=== PATIENT | male | born 2000 | race Caucasian/White ===

== ENCOUNTER 2022-01-09 21:49 | Emergency (ER) | payer SELFPAY ==
[2022-01-09 22:09] VITALS: BMI 26.6
[2022-01-09 22:14] VITALS: BP 138/83; PULSE 99; RESP 16; TEMP 36.9; O2SAT 100
--- NOTE | 2022-01-09 22:18 | XRR_ITS ---
PROCEDURE INFORMATION: Exam: XR Chest Exam date and time: 01/09/2022 10:38 PM Age: 21 years old Clinical indication: Shortness of breath; Additional info: SOB TECHNIQUE: Imaging protocol: Radiologic exam of the chest. Views: 1 view. COMPARISON: No relevant prior studies available. FINDINGS: Lungs: No consolidation. Probable tiny calcified granuloma lateral right lung base. Pleural spaces: Unremarkable. No pleural effusion. No pneumothorax. Heart/Mediastinum: No cardiomegaly. Bones/joints: No acute findings. XR/XR chest 1V portable [id number] IMPRESSION: No acute findings.
[2022-01-09 22:33] VITALS: O2SAT 99
--- NOTE | 2022-01-09 22:44 | ED_ITS ---
HPI - General Adult General: Chief complaint: General Medical Stated complaint: pain on left side of body Time Seen by Provider: 01/09/22 21:54 Source: patient Mode of arrival: ambulatory Limitations: no limitations History of Present Illness: 21-year-old male states over the last 2 days he has been having painful inspiration. He states been a sharp pain in his left chest he denies any fever denies any shortness of breath. He states the pain currently is a 0-10 he states it seems to be worse at night and worse pain is a 5 out of 10. Denies any injury denies any recent long trips he has no history of blood clots. Denies any recent surgery. Associated symptoms: Reports chest pain; Deny dyspnea, headache(s), nausea, rash or vomiting Review of Systems Const: Denies: fever(s), chills, body aches or change in appetite Eyes: Denies: blurry vision or eye discomfort ENMT: Denies: throat pain or dental pain Card: Reports: chest pain Resp: Denies: dyspnea GI: Denies: abdominal pain, nausea, vomiting or diarrhea : Denies: dysuria Musc: Denies: neck pain or back pain Skin/Breast: Denies: rash Neuro: Denies: headache(s) Psych: Denies: depression Lewis/Lymph: Denies: easy bruising All/Imm: Denies: urticaria PFSH ED PFSH: Medical History (Updated 01/09/22 @ 22:58 by Liz Chua MD) No pertinent past medical history Social History Smoking and tobacco status: current every day smoker Physical Exam Const: COMMON NORMALS: no acute distress, patient oriented x3 and healthy appearing HENMT: COMMON NORMALS: normocephalic and atraumatic HEAD & SCALP: normocephalic and atraumatic Eye: COMMON NORMALS: Equal, round and reactive pupils present and EOMs intact bilaterally PUPIL: Yes Equal, round and reactive pupils present Neck/C-Spine: COMMON NORMALS: full ROM and supple Chest: COMMONS NORMALS: normal inspection of the chest and normal palpation of entire chest wall Resp: COMMON NORMALS: normal respiratory effort, No retractions, No use of accessory muscles and clear to auscultation bilaterally AUSCULTATION: clear to auscultation bilaterally Cardio: COMMON NORMALS: regular rate, regular rhythm and No murmurs present (Cardio) RATE: regular rate RHYTHM: regular rhythm GI: COMMON NORMALS: Normal to inspection, nondistended, normoactive bowel sounds present, Soft to palpation, non-tender and no masses PALPATION: Yes Soft to palpation Extremity: COMMON NORMALS: normal to inspection and full ROM Neuro: COMMON NORMALS: patient oriented x3, moves all extremities and no focal motor deficits Psych: COMMON NORMALS: mental status grossly normal, Normal thought process present and cooperative THOUGHT PROCESS: Normal thought process present Skin: COMMON NORMALS: no rashes or lesions noted and no wounds GENERAL SKIN EXAM: no rashes or lesions noted Course Vital Signs: Vital signs: Vital Signs Temperature 98.4 F 01/09/22 22:14 Pulse Rate 99 01/09/22 22:14 Respiratory Rate 16 01/09/22 22:14 Blood Pressure 138/83 01/09/22 22:14 Pulse Oximetry 99 01/09/22 22:33 Oxygen Delivery Me thod 01/09/22 22:33 MDM - General Adult Medical Decision Making Patient presents here with chest pain is likely pleuritic in nature he has no risk factors for blood clot EKG and x-ray are normal he is in no distress here he is stable for discharge he is to follow-up his PCP and return if worsening he understands agrees to plan. Discharge Plan Discharge Patient Disposition: Home Clinical Impression: Chest pain Condition: Stable Prescriptions: New Naprosyn 500 mg tablet 500 mg PO BID PRN (Reason: pain) Qty: 20 0RF No Action sulfamethoxazole-trimethoprim [Bactrim DS] 800-160 mg tablet 1 tab PO Q12H 7 Days Qty: 14 0RF Discharge Orders: Discharge ED (Routine); Ordered 01/09/22 Ordered By: Liz Chua Discharge Diet: Advance as tolerated Discharge Activity: Resume usual activity Patient Instructions: Pleurisy (ED) Coding Level of Care Code ED Measurement Superintendent for Chg Fwd Exam Comprehensive
--- NOTE | 2022-01-09 22:54 | ECG_ITS ---
[facility] Test Date: 2022-01-09 Pat Name: Ken Aggarwal Department: Room: Gender: Male Hypo Dipper: : 2000 Requested By: Liz Chua Order Number: [id number] Roxie MD: Vincent Spencer M.D. Measurements Intervals [place] Rate: 90 P: 59 SC: 150 QRS: 95 QRSD: 84 T: 9 QT: 333 QTc: 409 Interpretive Statements SINUS RHYTHM WITH SINUS ARRHYTHMIA BORDERLINE RIGHT AXIS DEVIATION [QRS AXIS > 90] No previous ECG available for comparison Electronically Signed On 01-10-2022 17:51:02 CDT by Vincent Spencer M.D. [id number]
[2022-01-09] MEDS: naproxen 500 mg Tablet PO (23:08)
== END 2022-01-09 23:10 | disposition home or self-care (01) ==
PROVIDERS: Emergency Provider Emergency Medicine
DX: R07.9 Chest pain, unspecified (principal); F17.210 Nicotine dependence, cigarettes, uncomplicated
CPT/HCPCS: 71045; 93005; 99283

== ENCOUNTER 2022-02-10 17:33 | Emergency (ER) | payer SELFPAY ==
[2022-02-10 17:45] VITALS: BP 148/76; PULSE 89; RESP 16; TEMP 36.7; BMI 25.8
--- NOTE | 2022-02-10 18:12 | XRR_ITS ---
PROCEDURE INFORMATION: Exam: XR Left Foot Exam date and time: 02/10/2022 6:26 PM Age: 21 years old Clinical indication: Injury or trauma; Fall; Blunt trauma; Foot; Left; Additional info: Injury 4 days ago TECHNIQUE: Imaging protocol: Radiologic exam of the Left foot. Views: 3 or more views. COMPARISON: No relevant prior studies available. FINDINGS: Bones/joints: Normal. Soft tissues: Normal. XR/XR foot LT min 3V* [id number] IMPRESSION: No acute findings.
--- NOTE | 2022-02-10 18:25 | W.ED.EXTPRO ---
HPI - Extremity Problem General: Chief complaint: Extremity Injury, Lower Stated complaint: Foot feels like it's broken Time Seen by Provider: 02/10/22 17:37 History of Present Illness: 21-year-old male patient comes in today with injury to the left great toe. Patient reports on Sunday he dropped a piece of wood on his toe. Since then he has had increased pain and discomfort with swelling and redness to the toe. Associated symptoms: Deny chest pain or fever(s) Review of Systems Const: Denies: fever(s) Card: Denies: chest pain Resp: Denies: dyspnea Musc: Reports: extremity pain Skin/Breast: Reports: other (Nail injury great toe left foot) [facility] ED PFSH: Medical History (Updated 02/10/22 @ 18:43 by JEFFREY Putnam) No pertinent past medical history Social History Smoking and tobacco status: current every day smoker Physical Exam Const: COMMON NORMALS: alert HENMT: COMMON NORMALS: normocephalic HEAD & SCALP: normocephalic Neck/C-Spine: COMMON NORMALS: full ROM Resp: COMMON NORMALS: normal respiratory effort Cardio: COMMON NORMALS: regular rate RATE: regular rate Extremity: LEFT LOWER EXTREMITY: Yes foot & digits (Partially avulsed great toenail, swelling and redness.) Left foot and digits: Yes inspection, Yes palpation and Yes ROM Neuro: SENSORIUM/ORIENTATION: Yes alert Skin: TRAUMA: other (Loosened left great toenail.) Course Vital Signs: Vital signs: Vital Signs Temperature 98.1 F 02/10/22 17:45 Pulse Rate 89 02/10/22 17:45 Respiratory Rate 16 02/10/22 17:45 Blood Pressure 148/76 02/10/22 17:45 Oxygen Delivery Me thod 02/10/22 17:45 MDM - Extremity (Nontraumatic) Medical Decision Making Patient comes in for injury to the left foot great toe. On exam patient has a loosened toenail to the great toe of the left foot. There is some redness and swelling and some purulent drainage 2. Wound occurred on Sunday of this week. Pulses and sensation are intact. Patient is very guarded with touch. Differential diagnosis includes fracture, avulsion of toenail, subungual hematoma. No obvious subungual hematoma is noted. X-ray noted no fracture. Reviewed exam with patient and family with recommendations for treatment and follow-up. They reported understanding and agreed to plan. Discharge Plan Discharge Patient Disposition: Home Clinical Impression: Crush injury of toe Qualifiers: Encounter type: initial encounter Laterality: right Qualified Code(s): S97.101A - Crushing injury of unspecified right toe(s), initial encounter Condition: Stable Prescriptions: New amoxicillin-pot clavulanate 875-125 mg tablet 1 tab PO BID Qty: 10 0RF hydrocodone-acetaminophen 5-325 mg tablet 1 tab PO Q8H PRN (Reason: pain) Qty: 6 0RF No Action sulfamethoxazole-trimethoprim [Bactrim DS] 800-160 mg tablet 1 tab PO Q12H 7 Days Qty: 14 0RF Naprosyn 500 mg tablet 500 mg PO BID PRN (Reason: pain) Qty: 20 0RF Discharge Orders: Discharge ED (Routine); Ordered 02/10/22 Ordered By: Shaq Duarte Discharge Diet: Usual diet Discharge Activity: Increase activity as tolerated Patient Instructions: Crush Injury (ED) Activity Restrictions/Additional Instructions: Home and rest. Elevate foot. Use acetaminophen and ibuprofen to control pain. Use hydrocodone for severe pain. Do not use hydrocodone while operating equipment or driving. Not use hydrocodone while you should be alert and monitoring your situation around you. Drink plenty of water with medication. Take antibiotic for the next 5 days. Follow-up with primary care in 1 week for recheck. Return to ER for new concerns. Coding Level of Care Code ED Biological Technical Officer for Sriram Nguyen
[2022-02-10] MEDS: amoxicillin-clav 875-125 mg Tablet 1 TAB PO (18:53)
[2022-02-10] MEDS: HYDROcodone-acetaminophen 5-325 mg Tablet 1 TAB PO (18:53)
== END 2022-02-10 18:57 | disposition home or self-care (01) ==
PROVIDERS: Emergency Provider Nurse Practitioner Family
DX: S97.101A Crushing injury of unspecified right toe(s), initial encounter (principal); F17.200 Nicotine dependence, unspecified, uncomplicated; W22.8XXA Striking against or struck by other objects, initial encounter
CPT/HCPCS: 73630; 99283

== ENCOUNTER 2022-06-04 22:53 | Emergency (ER) | payer SELFPAY ==
[2022-06-04 23:00] VITALS: BP 145/74; PULSE 104; RESP 18; TEMP 36.8; O2SAT 100; BMI 25.8
--- NOTE | 2022-06-04 23:01 | W.ED.ABDPA2 ---
HPI - Abdominal Pain General: Chief Complaint: Skin/Abscess/Foreign Body Stated Complaint: groin pain Time Seen by Provider: 06/04/22 22:56 History of Present Illness: Patient comes in today with a nodule to the right inguinal area. Patient noticed that nodule about 2 to 3 days ago. Patient denies any nausea vomiting or fever. Patient reports no urinary difficulty. Patient denies any other complaints. Further questioning patient does report ingrown toenail in the left foot. Review of Systems Skin/Breast: Reports: other (Ingrown toenail, lump in the right inguinal area) [facility] ED PFS: Medical History (Updated 06/04/22 @ 23:10 by JEFFREY Putnam) No pertinent past medical history Social History Smoking and tobacco status: current every day smoker Physical Exam Const: COMMON NORMALS: alert HENMT: COMMON NORMALS: normocephalic HEAD & SCALP: normocephalic Neck/C-Spine: COMMON NORMALS: full ROM Resp: COMMON NORMALS: normal respiratory effort and clear to auscultation bilaterally AUSCULTATION: clear to auscultation bilaterally Cardio: COMMON NORMALS: regular rate and regular rhythm RATE: regular rate RHYTHM: regular rhythm : OTHER: Right inguinal area there is a 1 cm nodule palpable with free movement Extremity: LEFT LOWER EXTREMITY: Yes foot & digits (Erythematous draining great toe left foot) Neuro: SENSORIUM/ORIENTATION: Yes alert Course Vital Signs: Vital signs: Vital Signs Temperature 98.3 F 06/04/22 23:00 Pulse Rate 104 H 06/04/22 23:00 Respiratory Rate 18 06/04/22 23:00 Blood Pressure 145/74 06/04/22 23:00 Pulse Oximetry 100 06/04/22 23:00 Oxygen Delivery Me thod 06/04/22 23:00 MDM - Abdominal Pain Medical Decision Making Patient comes in with palpable nodule to the right inguinal area. Nodule is freely movable and only tender to palpation. Patient also has some erythema and drainage to the great toe on the left foot. Differential diagnosis includes but not limited to lymphadenitis, lipoma, cat scratch fever, reactive lymphadenopathy to the ingrown toenail. Recommended treating for infection with Bactrim 1 tablet twice a day for the next 10 days. Recommend recheck of nodule in 2 weeks. Reported to patient I may need to have further evaluation with either biopsy or lab testing which he can talk with primary care regarding that. Case management was requested to assist with follow-up with primary care. Discharge Plan Discharge Patient Disposition: Home Clinical Impression: Lymphadenitis, Ingrowing toenail Condition: Stable Prescriptions: New Bactrim DS 800-160 mg tablet 1 tab PO BID 10 Days Qty: 20 0RF Continued Naprosyn 500 mg tablet 500 mg PO BID PRN (Reason: pain) Qty: 20 0RF Discontinued sulfamethoxazole-trimethoprim [Bactrim DS] 800-160 mg tablet 1 tab PO Q12H 7 Days Qty: 14 0RF amoxicillin-pot clavulanate 875-125 mg tablet 1 tab PO BID Qty: 10 0RF hydrocodone-acetaminophen 5-325 mg tablet 1 tab PO Q8H PRN (Reason: pain) Qty: 6 0RF Discharge Orders: Discharge ED (Routine); Ordered 06/04/22 Ordered By: Shaq Duarte Discharge Diet: Usual diet Discharge Activity: Increase activity as tolerated Patient Instructions: Lymphadenopathy (ED) Activity Restrictions/Additional Instructions: Drink plenty of water with medications. Follow-up with primary care in 2 weeks for recheck. You may need to have further evaluation of the nodule with referral to surgeon for biopsy. Case management will contact you if assistance for follow-up with primary care. Return to ED for new concerns. Coding Level of Care Code ED Palliative Nurse for Sriram Nguyen
[2022-06-04] MEDS: sulfamethoxazole-trimeth DS 160-800 mg Tablet 1 TAB PO (23:14)
--- NOTE | 2022-06-05 14:05 | DCPLANNER ---
Addendum entered by Cynthia Godfrey 07/14/22 07:35: Patient had an appointment scheduled at [facility] - appointment was cancelled Addendum entered by Cynthia Godfrey 06/05/22 14:33: Patient called human services case manager back stating that he would like to have help in getting established with a primary care physician. property manager called [facility], spoke with Stephanie, gave clinic patients information. A follow up appointment was scheduled for Sunday, June 12, 2022 at 2:[address] Otoole. property manager gave patient appointment information. Original Note: property manager had message to speak with patient about getting established with a primary care physician. property manager called phone number [phone] - unable to speak with patient at this time, and unable to leave a voicemail for patient due to no voicemail box set up.
== END 2022-06-04 23:23 | disposition home or self-care (01) ==
PROVIDERS: Emergency Provider Nurse Practitioner Family
DX: I88.9 Nonspecific lymphadenitis, unspecified (principal); L60.0 Ingrowing nail; F17.210 Nicotine dependence, cigarettes, uncomplicated
CPT/HCPCS: 99283

== ENCOUNTER 2022-06-28 23:19 | Emergency (ER) | payer SELFPAY ==
[2022-06-28 23:23] VITALS: BP 164/87; PULSE 91; RESP 15; TEMP 37.1; O2SAT 98; BMI 25.5
--- NOTE | 2022-06-28 23:32 | ED_ITS ---
HPI - URI/Sore Throat General: Chief Complaint: Upper Respiratory Infection Stated Complaint: Congestion, sore throat, fever Time Seen by Provider: 06/28/22 23:32 History of Present Illness: 22-year-old male patient comes in today for complaints of cough and congestion for the last 2 days. Patient reports no severe headache or shortness of breath. Patient appears mildly unwell but nontoxic. Patient appears in no severe pain. Review of Systems ENMT: Reports: throat pain Resp: Reports: non-productive cough PFSH ED PFSH: Medical History (Updated 06/29/22 @ 00:19 by JEFFREY Putnam) No pertinent past medical history Social History Smoking and tobacco status: current every day smoker Physical Exam Const: COMMON NORMALS: alert HENMT: COMMON NORMALS: normocephalic HEAD & SCALP: normocephalic Neck/C-Spine: COMMON NORMALS: full ROM Resp: COMMON NORMALS: normal respiratory effort and clear to auscultation bilaterally AUSCULTATION: clear to auscultation bilaterally Cardio: COMMON NORMALS: regular rate and regular rhythm RATE: regular rate RHYTHM: regular rhythm Extremity: COMMON NORMALS: normal to inspection Neuro: SENSORIUM/ORIENTATION: Yes alert Skin: COMMON NORMALS: turgor normal GENERAL SKIN EXAM: turgor normal Course Vital Signs: Vital signs: Vital Signs Temperature 98.8 F 06/28/22 23:23 Pulse Rate 91 06/28/22 23:23 Respiratory Rate 15 06/28/22 23:23 Blood Pressure 164/87 06/28/22 23:23 Pulse Oximetry 98 06/28/22 23:23 Oxygen Delivery Me thod 06/28/22 23:23 MDM - URI/Sore Throat Medical Decision Making Patient comes in today for complaints of sore throat and cough and congestion for 2 days. On exam patient appears nontoxic. Lungs are clear to auscultation. Patient has some drainage in the nose. Bilateral TMs are clear. Differential diagnosis includes not limited to strep pharyngitis, viral syndrome, upper respiratory infection. Strep test, COVID-19 test, and influenza test were all negative. Reviewed exam with patient with recommendations for treatment and follow-up. Patient reported understanding. Lab Data Laboratory Results Influenza Type A Ag Negative (Negative) 06/28/22 23:30 Influenza Type B Ag Negative (Negative) 06/28/22 23:30 SARS-CoV-2 Ag (Rapid) Negative (Negative) 06/28/22 23:30 Group A Strep Rapid Negative (Negative) 06/28/22 23:30 Discharge Plan Discharge Patient Disposition: Home Clinical Impression: Upper respiratory infection Qualifiers: URI type: unspecified viral URI Qualified Code(s): J06.9 - Acute upper respiratory infection, unspecified Condition: Stable Prescriptions: No Action Naprosyn 500 mg tablet 500 mg PO BID PRN (Reason: pain) Qty: 20 0RF Discharge Orders: Discharge ED (Routine); Ordered 06/29/22 Ordered By: Shaq Duarte Discharge Diet: Usual diet Discharge Activity: Increase activity as tolerated Patient Instructions: Upper Respiratory Infection (ED) Activity Restrictions/Additional Instructions: Home and rest. Drink plenty of water and fluids. Use acetaminophen and ibuprofen for pain and discomfort. Most upper respiratory infections will run 5 to 7 days. Some people do develop bronchitis after upper respiratory infection but that usually will clear within 2 to 3 weeks. Follow-up with primary care as needed. Return to emergency department for worsening symptoms such as persistent vomiting, severe chest pain, or increasing shortness of breath. Stand Alone Forms: Work/School Release Coding Level of Care Code ED Supervisor Plastic Sheets for Sriram Nguyen
[2022-06-29 00:05] LABS: Rapid Strep A Test Negative (Negative)
[2022-06-29 00:15] LABS: SARS Covid-2 Antigen Negative (Negative)
[2022-06-29 00:16] LABS: Influenza A by IFA Negative (Negative); Influenza B by IFA Negative (Negative)
[2022-06-29 00:23] VITALS: PULSE 83; RESP 18; O2SAT 99
== END 2022-06-29 00:24 | disposition home or self-care (01) ==
PROVIDERS: Emergency Provider Nurse Practitioner Family
DX: J06.9 Acute upper respiratory infection, unspecified (principal); Z20.822 Contact with and (suspected) exposure to COVID-19; F17.210 Nicotine dependence, cigarettes, uncomplicated
CPT/HCPCS: 87081; 87426; 87804; 87880; 99283

== ENCOUNTER 2022-09-20 17:08 | Emergency (ER) | payer SELFPAY ==
[2022-09-20 17:20] VITALS: BP 157/98; PULSE 98; RESP 19; TEMP 36.8; O2SAT 98; BMI 25.8
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
[2022-09-20] MEDS: HYDROcodone-acetaminophen 10-325 mg Tablet 1 TAB PO (18:51)
[2022-09-20] MEDS: tetracaine 0.5% Op Soln 4 mL Btl 1 DROP EYE-LEFT (19:08)
[2022-09-20] MEDS: fluorescein 1 mg Strip EYE-LEFT (19:08)
[2022-09-20] MEDS: neomycin-poly-dex Op 5 mL Btl 2 DROP EYE-LEFT (19:46)
--- NOTE | 2022-09-22 15:17 | DCPLANNER ---
system administration manager called patient due to no primary care physician - no answer at this time.
== END 2022-09-20 19:50 | disposition home or self-care (01) ==
PROVIDERS: Emergency Provider Nurse Practitioner Family
DX: S05.02XA Injury of conjunctiva and corneal abrasion without foreign body, left eye, initial encounter (principal); H11.32 Conjunctival hemorrhage, left eye; F17.210 Nicotine dependence, cigarettes, uncomplicated; W34.09XA Accidental discharge from other specified firearms, initial encounter
CPT/HCPCS: 99283

== ENCOUNTER 2024-05-21 21:53 | Emergency (ER) | payer SELFPAY ==
[2024-05-21 22:06] VITALS: BP 154/94; PULSE 103; RESP 16; TEMP 36.9; O2SAT 98; BMI 27.4
--- NOTE | 2024-05-21 22:17 | W.ED.DENTAL ---
HPI - Dental/Oral General: Chief complaint: Dental/Oral Stated complaint: dental pain mouth swollen Time Seen by Provider: 05/21/24 22:12 History of Present Illness: Patient presents to the ER with multiple dental caries and pain. There is 1 on each side on the bottom and 1 on the upper left top. This been going on for the last couple days it has been giving him problems. He has not been able to get into the dentist due to the holidays. Related Data Previous Rx's Medication Instructions Recorded clindamycin HCl 150 mg capsule 450 mg (3 x 150 mg) PO Q8H 7 days 11/27/23 #63 caps hydrocodone 7.5 mg-acetaminophen 1 tab PO Q6H PRN pain 3 days #10 11/27/23 325 mg tablet tabs clindamycin HCl 300 mg capsule 300 mg PO Q6H 7 days #28 caps 05/21/24 Allergies Allergy/AdvReac Type Severity Reaction Status Date / Time No Known Allergies Allergy Verified 11/27/23 15:54 Review of Systems General: Reports: 10 or more systems reviewed and unremarkable except in HPI and below PFSH ED PFSH: Medical History No pertinent past medical history Social History Smoking and tobacco/nicotine status: current every day tobacco/nicotine user Physical Exam Const: COMMON NORMALS: no acute distress, average body habitus, patient oriented x3, no limitations, healthy appearing, alert and well nourished HENMT: COMMON NORMALS: normocephalic, atraumatic, hearing grossly normal bilaterally, external ears normal, Normal external nose present and moist oral mucous membranes; dentition not normal (Very poor dentition with multiple necrotic teeth) HEAD & SCALP: normocephalic and atraumatic NOSE: Normal external nose present EXTERNAL EAR: Yes external ears normal Neck/C-Spine: COMMON NORMALS: full ROM, no lymphadenopathy, supple, no meningeal signs and no JVD Chest: COMMONS NORMALS: normal inspection of the chest and normal palpation of entire chest wall Resp: COMMON NORMALS: normal respiratory effort, No retractions, No use of accessory muscles and clear to auscultation bilaterally AUSCULTATION: clear to auscultation bilaterally Cardio: COMMON NORMALS: no JVD, regular rate, regular rhythm, S1 normal heart sound present, S2 normal heart sound present, No gallops present (Cardio), No clicks present (Cardio), No murmurs present (Cardio) and No rub (Cardio) RATE: regular rate RHYTHM: regular rhythm HEART SOUNDS: S1 normal heart sound present and S2 normal heart sound present Neuro: COMMON NORMALS: patient oriented x3 SENSORIUM/ORIENTATION: Yes alert MENINGEAL SIGNS: Yes no meningeal signs Course Vital Signs: Vital signs: Vital Signs Temperature 98.4 F 05/21/24 22:06 Pulse Rate 103 H 05/21/24 22:06 Respiratory Rate 16 05/21/24 22:06 Blood Pressure 154/94 05/21/24 22:06 Pulse Oximetry 98 05/21/24 22:06 Oxygen Delivery Me thod Room Air 05/21/24 22:06 MDM - Dental/Oral Medical Decision Making Patient was given viscous lidocaine and clindamycin in the ER. Patient will be prescribed clindamycin to go home. Patient to follow-up with a dentist for definitive treatment Medical Records I reviewed the patient's medical records. Lab Data I reviewed the patient's lab results. No radiology studies performed this visit Discharge Plan Discharge Patient Disposition: Home Clinical Impression: Dental caries Condition: Stable Prescriptions: New clindamycin HCl 300 mg capsule 300 mg PO Q6H 7 Days Qty: 28 0RF No Action clindamycin HCl 150 mg capsule 450 mg PO Q8H 7 Days Qty: 63 0RF hydrocodone-acetaminophen 7.5-325 mg tablet 1 tab PO Q6H PRN (Reason: pain) 3 Days Qty: 10 0RF Discharge Orders: Discharge ED (Routine); Ordered 05/21/24 Ordered By: Kenneth Frye Patient Instructions: Dental Abscess (ED) Activity Restrictions/Additional Instructions: Using a Q-tip apply a small drop of viscous lidocaine to each affected tooth as this will help numb the area and decrease the pain. Please take all your antibiotics as directed. Please follow-up with a dentist for definitive treatment. Coding Level of Care Code ED District Operations Manager for Sriram Nguyen
[2024-05-21] MEDS: clindamycin 150 mg Capsule 300 MG PO (22:25)
[2024-05-21] MEDS: lidocaine 2% viscous 15 mL UDC 5 ML TOPICAL (22:25)
[2024-05-21 22:35] VITALS: BP 140/90; PULSE 98; O2SAT 97
== END 2024-05-21 22:36 | disposition home or self-care (01) ==
PROVIDERS: Emergency Provider Emergency Medicine
DX: K02.9 Dental caries, unspecified (principal); Z72.0 Tobacco use
CPT/HCPCS: 99283